=== PATIENT | male | born 1975 | race Caucasian/White ===

== ENCOUNTER 2022-03-14 07:31 | Emergency (ER) | payer SELFPAY ==
[2022-03-14] MEDS ORDERED: Ketorolac Tromethamine 30 MG/ML VIAL ONE ×2 (07:45→09:50)
[2022-03-14] MEDS ORDERED: Ondansetron PF 4 MG/2 ML Vial ONE ×2 (07:45→09:50)
[2022-03-14] MEDS ORDERED: Sodium Chloride 0.9% 1,000 ML ONE (07:45)
[2022-03-14 08:03] LABS: #Basophils 0.2 thou/uL (0.0-0.2); #Eosinphils 0.2 thou/uL (0.0-0.7); #Lymphocytes 3.4 thou/uL (1.20-3.40); #Monocytes 0.8 thou/uL (0.11-0.59); #Neutrophils 8.8 thou/uL (1.40-6.50); %Basophils 1.3 % (0.0-1.0); %Eosinophils 1.2 % (0.0-10.0); %Lymphocytes 25.4 % (21.0-51.0); %Monocytes 5.9 % (0.0-10.0); %Neutrophils 66.3 % (42.0-75.0); Mean Corpuscular HGB CONC 33.8 g/dL (32.0-36.0); Mean Corpuscular Hemoglobin 30.8 pg (27.0-31.0); Mean Corpuscular Volume 91.1 fL (78.0-98.0); Mean Platelet Volume 9.2 fL (7.4-10.4); Platelet Count 259 thou/uL (130-400); RBC Distribution Width 10.9 % (11.5-14.5); Red Blood Cell (RBC) Count 5.51 mill/uL (4.70-6.10); White Blood Cell (WBC) Count 13.2 thou/uL (4.8-10.8)
[2022-03-14 08:18] LABS: Lipase 86 U/L (8-78)
[2022-03-14 08:22] LABS: BUN (Urea Nitrogen) 11 mg/dL (8.9-20.6); Carbon Dioxide 23 mmol/L (22-29); Chloride 105 mmol/L (98-107); Potassium 3.6 mmol/L (3.5-5.1); Sodium 141 mmol/L (136-145)
[2022-03-14 08:23] LABS: Calc. Creatinine Clearance 0 mL/min (70-130); Calcium 9.6 mg/dL (7.8-10.44); Estimated GFR 59; Glucose 149 mg/dL (70-105)
[2022-03-14 08:25] LABS: Anion Gap 17 mmol/L (10-20)
[2022-03-14 08:28] LABS: ALT (SGPT) 11 U/L (8-55); AST (SGOT) 10 U/L (5-34); Albumin 4.5 g/dL (3.5-5.0); Alkaline Phosphatase 80 U/L (40-110); Bilirubin, Total 0.6 mg/dL (0.2-1.2); Globulin 3.1 g/dL (2.4-3.5); Protein, Total 7.6 g/dL (6.0-8.3)
[2022-03-14 09:14] LABS: Bilirubin Small (Negative); Blood, Urine Large (Negative); Glucose, Urine (Dipstick) Negative (Negative); Ketone, Urine Trace mg/dL (Negative); Leukocyte Negative (Negative); Nitrite Negative (Negative); Protein, Urine (Dipstick) 100 mg/dL (Neg-Trace); Specific Gravity, Urine 1.025 (1.005-1.030); Urobilinogen 0.2 mg/dL (Less than 2)
[2022-03-14 09:15] LABS: Clarity Cloudy (Clear)
[2022-03-14 09:23] LABS: Bacteria/HPF Rare-Few HPF (None Seen); RBC/HPF Greater than 50 HPF (0-3); Squamous Epithelial 0-3 HPF (0-3); WBC/HPF 0-3 HPF (0-3)
[2022-03-14 09:24] LABS: Mucous/LPF 1+ LPF (<2+)
== END 2022-03-14 10:04 | disposition home or self-care (01) ==
LOC: MADERS 07:31
DX: N13.2 Hydronephrosis with renal and ureteral calculous obstruction (principal); N17.9 Acute kidney failure, unspecified; E86.0 Dehydration; R11.2 Nausea with vomiting, unspecified; K21.9 Gastro-esophageal reflux disease without esophagitis; F17.200 Nicotine dependence, unspecified, uncomplicated
CPT/HCPCS: 74176; 81003; 81015; 83690; 83735; 85025; 96361; 96374; 96375; 96376; J1885; J2405; J7050

== ENCOUNTER 2022-09-19 19:14 | Emergency (ER) | payer SELFPAY ==
[2022-09-19] MEDS ORDERED: Azithromycin 250 MG TAB ONE (19:53)
[2022-09-19] MEDS ORDERED: Dexamethasone 10 MG/ML VIAL ONE (19:53)
[2022-09-19] MEDS ORDERED: Ketorolac Tromethamine 60 MG/2 ML VIAL ONE (19:53)
[2022-09-19] MEDS ORDERED: Sulfameth/Trimethoprim DS 800-160mg TAB ONE (20:02)
== END 2022-09-19 20:22 | disposition home or self-care (01) ==
LOC: MADERS 19:14
DX: J01.90 Acute sinusitis, unspecified (principal); K21.9 Gastro-esophageal reflux disease without esophagitis; F17.200 Nicotine dependence, unspecified, uncomplicated
CPT/HCPCS: 96372; 99283; J1100; J1885

== ENCOUNTER 2025-03-09 12:36 | Emergency (ER) | payer SELFPAY ==
[~2025-03-09 12:36] MED LIST: Iopamidol 370 76% 100 ML VIAL ONE
[2025-03-09] MEDS ORDERED: Ketorolac Tromethamine 30 MG (1 mL) VIAL ONE (13:18)
[2025-03-09 13:24] LABS: #Basophils 0.2 thou/uL (0.0-0.2); #Eosinophils 0.4 thou/uL (0.0-0.7); #Lymphocytes 3.1 thou/uL (1.20-3.40); #Monocytes 0.7 thou/uL (0.11-0.59); #Neutrophils 7.7 thou/uL (1.40-6.50); %Basophils 1.3 % (0.0-1.0); %Eosinophils 3.7 % (0.0-10.0); %Lymphocytes 25.5 % (21.0-51.0); %Monocytes 5.7 % (0.0-10.0); %Neutrophils 63.8 % (42.0-75.0); Hematocrit 48.4 % (42.0-52.0); Hemoglobin 16.6 g/dL (14.0-18.0); Mean Corpuscular Hemoglobin 32.3 pg (27.0-31.0); Mean Corpuscular Volume 94.0 fl (78.0-98.0); Platelet Count 351 10x3/uL (130-400); Red Blood Cell (RBC) Count 5.15 mill/uL (4.70-6.10); White Blood Cell (WBC) Count 12.0 10x3/uL (4.8-10.8)
[2025-03-09 13:40] LABS: ALT (SGPT) 11 U/L (Less than 45); AST (SGOT) 21 U/L (11-34); Albumin 5.1 g/dL (3.1-4.5); Alkaline Phosphatase 78 U/L (40-110); Anion Gap 18 mmol/L (10-20); BUN (Urea Nitrogen) 14 mg/dL (8.9-20.6); Bilirubin, Total 0.3 mg/dL (0.3-1.2); Calc. Creatinine Clearance 0 mL/min (70-130); Calcium 9.6 mg/dL (7.8-10.44); Carbon Dioxide 22 mmol/L (22-29); Chloride 104 mmol/L (98-107); Globulin 3.3 g/dL (2.4-3.5); Glucose 90 mg/dL (70-105); Potassium 4.2 mmol/L (3.5-5.1); Sodium 140 mmol/L (136-145)
[2025-03-09] MEDS ORDERED: Orphenadrine Citrate 60 MG/2 ML VIAL ONE (14:01)
[2025-03-09 15:16] LABS: Glucose, Urine (Dipstick) Negative (Negative); Leukocyte Negative (Negative); Protein, Urine (Dipstick) Negative (Neg-Trace); Specific Gravity, Urine 1.025 (1.005-1.030)
[2025-03-09 15:25] LABS: Bacteria/HPF Rare-Few HPF (None Seen); CAUTI Indications for Culture Pelvic or flank pain; Mucous/LPF 2+ LPF (<2+); RBC/HPF None Seen HPF (0-3); Urine Culture Reflex No No; WBC/HPF None Seen HPF (0-3)
== END 2025-03-09 17:13 | disposition home or self-care (01) ==
LOC: MADERS 12:36
DX: S39.012A Strain of muscle, fascia and tendon of lower back, initial encounter (principal); F17.290 Nicotine dependence, other tobacco product, uncomplicated; X50.0XXA Overexertion from strenuous movement or load, initial encounter; Y93.89 Activity, other specified
CPT/HCPCS: 74177; 80053; 81001; 83605; 85025; 96374; 96375; 96376; J1885; J2270; J2360; Q9967